=== PATIENT | male | born 1995 | race Caucasian/White ===

== ENCOUNTER → 2018-04-25 | Outpatient (CLI) | payer OTHER ==
--- NOTE | 2018-04-25 22:10 | MR ---
EXAMINATION TYPE: MR shoulder RT wo con DATE OF EXAM: 04/25/2018 COMPARISON: NONE HISTORY: Rt shoulder pain/injury after reaching into backseat of car TECHNIQUE: Multiplanar, multisequence imaging of the right shoulder is performed without contrast. FINDINGS: Examination is suboptimal due to artifact examination particularly PD coronal sequence. Rotator Cuff: Supraspinatus and infraspinatus tendons are both intact humeral detachment. No full-thi ckness retracted tears are seen. Subscapularis tendon is intact. Rotator cuff muscle bulk is preserve d. Acromioclavicular Joint: Acromioclavicular joint is felt within normal limits, inferior fat plane is maintained. Distal acromion morphology is unremarkable. Glenohumeral Joint: High riding humeral head is present with moderate narrowing. Mild spurring inferi or medial humeral head is identified. Labrum: The labrum appears grossly intact given limitation of non-arthrogram study. Biceps Tendon: The long head of biceps is in normal location within bicipital groove. Bone marrow signal: No focal abnormal marrow signal is appreciated. Other: There is old Hill-Sachs deformity involving the superior lateral humeral head. There is bony B ankart deformity involving anterior-inferior glenoid with healed fracture paracoronal image 14. IMPRESSION: Evidence of prior anterior shoulder dislocation injury with Hill-Sachs deformity humeral head and bony Bankart deformity anterior-inferior osseous glenoid. There is mild to moderate glenohum eral joint arthropathy. No rotator cuff tear is evident.
--- NOTE | 2018-04-25 22:33 | MR ---
EXAMINATION TYPE: MR knee LT wo con DATE OF EXAM: 04/25/2018 COMPARISON: NONE HISTORY: Lt knee pain, hx injury/ACL & meniscus tear, surgery 2016 TECHNIQUE: Multiplanar, multisequence images of the knee is performed without IV contrast. FINDINGS: MEDIAL MENISCUS: Anterior horn is intact without tear. Horizontal oblique signal posterior horn exten ds to superior articular surface sagittal image 24. LATERAL MENISCUS: Lateral meniscus shows vertical increased signal sagittal image 5 central body. The re is additional oblique signal posterior horn extending to superior articular surface. Some lateral protrusion of lateral meniscus is seen with adjacent para meniscal cyst formation coronal image 22. CRUCIATE LIGAMENTS: The posterior cruciate ligament is intact and unremarkable. Surgically repaired a nterior cruciate ligament remains intact. COLLATERAL LIGAMENTS: The medial collateral ligament and lateral collateral ligament complex are inta ct. There is some lateral bulging of the lateral collateral ligament complex to 2. Meniscal cyst form ation without abnormal signal. EXTENSOR MECHANISM: Visualized quadriceps and patellar tendons are intact. EFFUSION: No significant suprapatellar joint effusion. POPLITEAL CYST: No popliteal/hathaway cyst. TRICOMPARTMENT SPACES: Tricompartmental joint spaces are preserved. No significant spurring is seen. CARTILAGE: Tricompartment articular cartilage is maintained. BONE MARROW SIGNAL: Artifact from surgical repair anterior proximal tibia level is noted. No suspicio us edema is appreciated. OTHER: No additional significant abnormality is appreciated. IMPRESSION: 1. Surgically repaired ACL is felt intact. 2. Suspect new complex tear lateral meniscus involving central body and posterior horn with vertical component central body identified and adjacent parameniscal cyst formation noted. 3. Oblique full-thickness tear posterior horn medial meniscus.
== END | disposition home or self-care (01) ==
LOC: RADMRIMAIN 15:29
PROVIDERS: ATTEND Physician Assistant
DX: S83.242A Other tear of medial meniscus, current injury, left knee, initial encounter (principal); M21.821 Other specified acquired deformities of right upper arm; Z98.890 Other specified postprocedural states

== ENCOUNTER 2020-09-10 19:12 | Emergency (ER) | payer OTHER ==
[2020-09-10 19:22] VITALS: RESP 20; TEMP 98.1
[2020-09-10] MEDS ORDERED: ONDANSETRON 4 MG/2 ML VIAL IVP STA (19:33)
[2020-09-10] MEDS ORDERED: DIVALPROEX 500 MG TABLET.DR PO STA (19:36)
--- NOTE | 2020-09-10 19:44 | ED ---
General Adult HPI - General Chief complaint: Seizure Stated complaint: Seizure/vomiting Time Seen by Provider: 09/10/20 19:15 Source: patient, EMS, RN notes reviewed, old records reviewed Mode of arrival: EMS Limitations: no limitations - History of Present Illness Initial comments: This is a 25-year-old male who presents emergency department after having had a seizure. According to EMS the patient seized for 5 minutes. Patient states he thinks he had a seizure yesterday as well. Patient states he has not been taking his Depakote regularly. Patient states he did take a Xanax earlier and he did smokes marijuana. Patient states when he had a seizure today he feels as though he might have hurt his right shoulder. Patient denies any headache p atient denies numbness weakness. Patient states he believes his last seizure was about 6 months ago. Patient denies any recent fever chills or cough per patient denies any alcohol use. - Related Data Allergies Allergy/AdvReac Type Severity Reaction Status Date / Time No Known Allergies Allergy Verified 09/10/20 19:34 Review of Systems ROS Statement: Those systems with pertinent positive or pertinent negative responses have been documented in the HPI. ROS Other: All systems not noted in ROS Statement are negative. Past Medical History Past Medical History: Seizure Disorder History of Any Multi-Drug Resistant Organisms: None Reported Past Surgical History: No Surgical Hx Reported Past Psychological History: Anxiety, Depression Smoking Status: Never smoker Past Alcohol Use History: None Reported Past Drug Use History: Marijuana General Exam - General Exam Comments Initial Comments: GENERAL: Patient is well-developed and well-nourished. Patient is nontoxic and well- hydrated and is in mild distress. ENT: Neck is soft and supple. No significant lymphadenopathy is noted. Oropharynx is clear. Moist mucous membranes. Neck has full range of motion without eliciting any pain. EYES: The sclera were anicteric and conjunctiva were pink and moist. Extraocular movements were intact and pupils were equal round and reactive to light. Eyelids were unremarkable. PULMONARY: Unlabored respirations. Good breath sounds bilaterally. CARDIOVASCULAR: There is a regular rate and rhythm without any murmurs gallops or rubs. ABDOMEN: Soft and nontender with normal bowel sounds. SKIN: Skin is clear with no lesions or rashes and otherwise unremarkable. NEUROLOGIC: Patient is alert and oriented x3. Cranial nerves II through XII are grossly intact. Motor and sensory are also intact. Normal speech, volume and content. Symmetrical smile. MUSCULOSKELETAL: Normal extremities with adequate strength and full range of motion. LYMPHATICS: No significant lymphadenopathy is noted PSYCHIATRIC: Normal psychiatric evaluation. Limitations: no limitations Course Vital Signs 09/10/20 19:16 Temperature 98.1 F Pulse Rate 109 H Respiratory 20 Rate Blood Pressure 140/85 O2 Sat by Pulse 98 Oximetry Medical Decision Making - Medical Decision Making EKG shows sinus tachycardia at 103 bpm IA interval is 160 QRS is 88 QT interval 338 QTC is 442. Patient's EKG shows no ST segment elevation or depression. Shoulder x-ray shows no acute abnormality. Patient received 1000 mg of Depakote while in the emergency department. Patient was instructed to start his Depakote on a daily basis as prescribed. Patient complains of right shoulder pain psychiatric the patient some Toradol and some Tylenol. - Lab Data Result diagrams: 09/10/20 19:40 09/10/20 19:40 Lab Results 09/10/20 09/10/20 Range/Units 19:40 19:40 WBC 14.6 H (3.8-10.6) k/uL RBC 5.18 (4.30-5.90) m/uL Hgb 15.0 (13.0-17.5) gm/dL Hct 42.5 (39.0-53.0) % MCV 82.2 (80.0-100.0) fL MCH 29.1 (25.0-35.0) pg MCHC 35.4 (31.0-37.0) g/dL RDW 12.9 (11.5-15.5) % Plt Count 329 (150-450) k/uL MPV 7.9 Neutrophils % 71 % Lymphocytes % 23 % Monocytes % 5 % Eosinophils % 0 % Basophils % 0 % Neutrophils # 10.3 H (1.3-7.7) k/uL Lymphocytes # 3.3 (1.0-4.8) k/uL Monocytes # 0.7 (0-1.0) k/uL Eosinophils # 0.0 (0-0.7) k/uL Basophils # 0.1 (0-0.2) k/uL Sodium 139 (137-145) mmol/L Potassium 4.1 (3.5-5.1) mmol/L Chloride 104 (98-107) mmol/L Carbon Dioxide 14 L (22-30) mmol/L Anion Gap 21 mmol/L BUN 8 L (9-20) mg/dL Creatinine 0.73 (0.66-1.25) mg/dL Est GFR (CKD-EPI)AfAm >90 (>60 ml/min/1.73 sqM) Est GFR (CKD-EPI)NonAf >90 (>60 ml/min/1.73 sqM) Glucose 140 H (74-99) mg/dL Calcium 9.5 (8.4-10.2) mg/dL Total Bilirubin 0.3 (0.2-1.3) mg/dL AST 35 (17-59) U/L ALT 23 (4-49) U/L Alkaline Phosphatase 78 (38-126) U/L Total Protein 7.4 (6.3-8.2) g/dL Albumin 5.0 (3.5-5.0) g/dL Valproic Acid 14.9 ug/mL Disposition Clinical Impression: Generalized seizure Disposition: HOME SELF-CARE Condition: Good Instructions (If sedation given, give patient instructions): Seizure/Epilepsy Discharge Instructions & Follow-Up, Recurrent Seizures in Adults (ED) Additional Instructions: Patient should start taking the Depakote as prescribed Is patient prescribed a controlled substance at d/c from ED?: No Referrals: Julio Stovall DO [Primary Care Provider] - 1-2 days Time of Disposition: 20:16
[2020-09-10 19:50] LABS: Basophils # (A) 0.1 k/uL (0-0.2); Basophils % (A) 0 %; Eosinophils % (A) 0 %; HCT 42.5 % (39.0-53.0); Lymphocytes # (A) 3.3 k/uL (1.0-4.8); Lymphocytes % (A) 23 %; MCH 29.1 pg (25.0-35.0); MCHC 35.4 g/dL (31.0-37.0); MCV 82.2 fL (80.0-100.0); Mean Platelet Volume 7.9; Monocytes # (A) 0.7 k/uL (0-1.0); Monocytes % (A) 5 %; Neutrophils # (A) 10.3 k/uL (1.3-7.7); Neutrophils % (A) 71 %; Platelet Count 329 k/uL (150-450); RBC 5.18 m/uL (4.30-5.90); RDW 12.9 % (11.5-15.5); WBC 14.6 k/uL (3.8-10.6)
[2020-09-10 20:00] LABS: AST 35 U/L (17-59); African American GFR (CKD) >90 (>60 ml/min/1.73 sqM); Alkaline Phosphatase 78 U/L (38-126); Anion Gap 21 mmol/L; Blood Urea Nitrogen 8 mg/dL (9-20); Calcium 9.5 mg/dL (8.4-10.2); Carbon Dioxide 14 mmol/L (22-30); Chloride 104 mmol/L (98-107); Glucose 140 mg/dL (74-99); Non-African American GFR(CKD) >90 (>60 ml/min/1.73 sqM); Potassium 4.1 mmol/L (3.5-5.1); Sodium 139 mmol/L (137-145); Total Bilirubin 0.3 mg/dL (0.2-1.3); Total Protein 7.4 g/dL (6.3-8.2)
--- NOTE | 2020-09-10 20:02 | XR ---
Result: Clinical History: Pain. Comparison: MR 04/25/2018. Technique: 3 views of the right shoulder. Findings: The bone mineralization is appropriate for age. There is stable cortical irregularity of the inferior glenoid, consistent with bony Bankhart lesion. No acute fracture or dislocation. There are mild degenerative changes with small osteophytes adjacent to the greater tuberosity. The visualized lung is clear. Impression: No acute fracture or dislocation. Stable Bankart lesion.
[2020-09-10 20:05] LABS: Valproic Acid (Depakene) 14.9 ug/mL
[2020-09-10 20:07] LABS: ALT 23 U/L (4-49)
[2020-09-10] MEDS ORDERED: ACETAMINOPHEN TAB 500 MG TAB PO STA (20:18)
[2020-09-10] MEDS: KETOROLAC 15 MG/ML 1 ML VIAL IVP STA ×2 (20:25→20:28)
[2020-09-10 20:47] VITALS: BP 130/90; PULSE 81
== END 2020-09-10 20:47 | disposition home or self-care (01) ==
LOC: EC 19:12
DX: G40.909 Epilepsy, unspecified, not intractable, without status epilepticus (principal); F32.9 Major depressive disorder, single episode, unspecified; F41.9 Anxiety disorder, unspecified; F12.90 Cannabis use, unspecified, uncomplicated
CPT/HCPCS: 36415; 93005; 80164; 80053; 85025; 73030; 99285; J2405

== ENCOUNTER → 2024-04-08 | Outpatient (CLI) | payer OTHER ==
--- NOTE | 2024-04-18 20:59 | EST ---
EXERCISE STRESS STUDY PERFORMED: Holter monitor. CLINICAL INFORMATION: Baseline rhythm is a sinus mechanism. The average is 67 beats per minute, minimum 41, maximum 145 beats per minute. Ventricular ectopic activity was present in the form of rare single PVCs. No atrial fibrillation was noted. Symptoms of tired, heart skipping, and nausea correlated with sinus mechanism. CONCLUSIONS: 1. Sinus mechanism, baseline rhythm. 2. Rare ventricular ectopic activity. 3. Symptoms did not correlate with any other arrhythmia. MMODL / IJN: [id number] /
== END | disposition home or self-care (01) ==
LOC: RADECHMAIN 07:43
PROVIDERS: ATTEND Family Medicine
DX: I49.3 Ventricular premature depolarization (principal); R00.0 Tachycardia, unspecified; R00.2 Palpitations
CPT/HCPCS: 93225